=== PATIENT | male | born 1950 | race Caucasian/White ===

== ENCOUNTER 2021-05-11 12:39 | Inpatient (IN) | payer OTHER | END 2021-05-14 16:22 | disposition home or self-care (01) | DRG 381 | LOC: ER 12:39 → ERHOLD 16:46 → ICUW 18:17 → MEDS 05-13 14:22 | PROVIDERS: ADMIT Internal Medicine | PROC: 30233N1 Transfusion of Nonautologous Red Blood Cells into Peripheral Vein, Percutaneous Approach (ICD-10-PCS; 2021-05-11) | PROC: 0W3P8ZZ Control Bleeding in Gastrointestinal Tract, Via Natural or Artificial Opening Endoscopic (ICD-10-PCS; principal; 2021-05-12) | PROC: 0DB68ZX Excision of Stomach, Via Natural or Artificial Opening Endoscopic, Diagnostic (ICD-10-PCS; 2021-05-12) | DX: K22.11 Ulcer of esophagus with bleeding (principal); D62 Acute posthemorrhagic anemia; N17.9 Acute kidney failure, unspecified; K44.9 Diaphragmatic hernia without obstruction or gangrene; K26.4 Chronic or unspecified duodenal ulcer with hemorrhage; J44.9 Chronic obstructive pulmonary disease, unspecified; E78.5 Hyperlipidemia, unspecified; I10 Essential (primary) hypertension; F32.9 Major depressive disorder, single episode, unspecified; N40.1 Benign prostatic hyperplasia with lower urinary tract symptoms; R33.8 Other retention of urine; D72.829 Elevated white blood cell count, unspecified; G89.29 Other chronic pain; F17.210 Nicotine dependence, cigarettes, uncomplicated; I99.8 Other disorder of circulatory system; M54.2 Cervicalgia; M54.9 Dorsalgia, unspecified; B18.2 Chronic viral hepatitis C; Z66 Do not resuscitate; Z86.73 Personal history of transient ischemic attack (TIA), and cerebral infarction without residual deficits; Z88.5 Allergy status to narcotic agent; Z88.8 Allergy status to other drugs, medicaments and biological substances; Z79.899 Other long term (current) drug therapy; Z79.1 Long term (current) use of non-steroidal anti-inflammatories (NSAID); Z79.891 Long term (current) use of opiate analgesic ==

== ENCOUNTER 2023-09-30 13:07 | Emergency (ER) | payer OTHER ==
[~2023-09-30] VITALS: Ht 167.6 cm; Wt 59.0 kg
[~2023-09-30 13:07] MED LIST: ATOR40TA PO; AZO CRANBERRY PO; Acetaminophen650 M1 PO; BUPRENORPHIN-N1 EAC1 SL; CALCIUM CARBON500 M1 PO; CARAFATE1 GM/10 M1 PO; GABA300 PO; Hydroxyzine HCl50 MG PO; K-Phos Origina500 MG PO; LISI20 PO; MELO7.5 PO; Methocarbamol500 MG PO; Mirtazapine45 M1 PO; OMEP20ER PO; ONDA4ODT MM; PANT40 PO; Pepcid40 MG PO; SERT50 PO; TAMS.4ER PO; TRAZ100 PO
[2023-09-30 13:29] LABS: BASOPHILS ABSOLUTE AUTO 0.05 K/mm3 (0.00-0.23); BASOPHILS PERCENT AUTO 1 % (0-2); EOSINOPHILS ABSOLUTE AUTO 0.01 K/mm3 (0.00-0.68); EOSINOPHILS PERCENT AUTO 0 % (0-6); Hematocrit 31.1 % (37.0-53.0); Hemoglobin 10.5 g/dL (13.5-17.5); IMMATURE GRAN ABSOLUTE AUTO 0.02 K/mm3 (0.00-0.10); IMMATURE GRAN PERCENT AUTO 0 % (0-1); LYMPHOCYTES ABSOLUTE AUTO 1.54 K/mm3 (0.84-5.20); LYMPHOCYTES PERCENT AUTO 21 % (21-46); MONOCYTES ABSOLUTE AUTO 0.79 K/mm3 (0.16-1.47); MONOCYTES PERCENT AUTO 11 % (4-13); Mean Corpuscular HGB 30.1 pg (26.0-34.0); Mean Corpuscular HGB Conc 33.8 g/dL (31.5-36.5); Mean Corpuscular Volume 89 fL (80-100); Mean Platelet Volume 8.6 fL (9.1-12.4); NEUTROPHILS ABSOLUTE AUTO 4.93 K/mm3 (1.96-9.15); NEUTROPHILS PERCENT AUTO 67 % (41-73); Platelet Count 341 K/mm3 (150-400); RDW Coefficient Variation 12.9 % (11.7-14.2); RDW Standard Deviation 41.8 fL (35.1-46.3); Red Blood Cell Count 3.49 M/mm3 (4.30-5.90); White Blood Cell Count 7.34 K/mm3 (4.00-11.30)
[2023-09-30 14:25] LABS: Albumin, Blood 4.1 g/dL (3.4-5.0); Albumin/Globulin Ratio 1.4 (0.8-1.8); Bilirubin, Total 0.5 mg/dL (0.1-1.0); Bun/Creatinine Ratio 22.8 (12.0-20.0); Calcium, Blood 8.7 mg/dL (8.5-10.1); Creatinine, Blood 0.57 mg/dL (0.60-1.20); Potassium, Blood 3.7 mmol/L (3.5-5.5); Total Protein, Blood 7.1 g/dL (6.4-8.2)
[2023-09-30 15:27] LABS: Source, Urine Clean Catch
[2023-09-30 15:31] LABS: Appearance, Urine Clear (Clear); Bilirubin, Urine Neg (Neg); Blood, Urine Neg (Neg); Color, Urine Yellow (P-Yellow); Glucose Qualitative, Urine Neg (Neg); Ketones, Urine 3+ (Neg); Leukocyte Esterase, Urine Neg (Neg); Nitrite, Urine Neg (Neg); Protein, Urine Neg (Neg); Specific Gravity, Urine 1.015 (1.003-1.022); Urobilinogen, Urine 1+ (Normal)
[2023-09-30 16:00] VITALS: BP 154/80
== END 2023-09-30 16:30 | disposition home or self-care (01) ==
LOC: ER 13:07
PROVIDERS: Emergency Medicine
DX: K29.70 Gastritis, unspecified, without bleeding (principal); E86.0 Dehydration; R53.1 Weakness; Z88.8 Allergy status to other drugs, medicaments and biological substances; Z79.899 Other long term (current) drug therapy; I10 Essential (primary) hypertension; J44.9 Chronic obstructive pulmonary disease, unspecified; F17.210 Nicotine dependence, cigarettes, uncomplicated
CPT/HCPCS: 80053; 81003; 85025; 99284; J7030

== ENCOUNTER → 2024-12-03 | Day surgery (SDC) | payer OTHER ==
[~2024-12-03] VITALS: Ht 166 cm; Wt 56.0 kg
[2024-12-03] VITALS (8 sets, daily range): BP systolic 97–149; BP diastolic 56–72
[~2024-12-03] MED LIST changes: +ATOR20 PO; +Bupivacaine 0.5% HCl 5 MG/ML 30MLVIAL ONE; +CeFAZolin Sodium 2,000 MG in NS 100 ML IV SCH; +Dexamethasone Sod Phos 10 MG/ML 1ML VIAL ONE; +FentaNYL Citrate 50 MCG/ML 2 ML Injection IV PRN; +FentaNYL Citrate 50 MCG/ML 2 ML Injection ONE; +HYDROcodone 5-APAP 325 TAB PO PRN; +HYDROmorphone HCl/Pf 1MG SYR IV PRN; +Ketorolac Tromethamine 30mg Vial ONE; +Labetalol HCL 5 MG/ML 4ML Injection (Single Dose) IV PRN; +Lactated Ringer's 1,000 ML IV SCH; +Metoclopramide HCl 5MG / ML 2ML Vial IV PRN; +NICO21TP TOP; +Ondansetron HCl 2 MG / ML 2ML Vial ONE; +Phenylephrine HCl 100 MCG/ML-NS 10MLSYR (1MG/10ML) ONE; +Rocuronium Bromide 10 MG/ML 5ML Injection IV ONE; +SENNA LAXATIVE8.6 MG PO; +SUCR1 PO; +Sugammadex Sodium 200 MG/2ML SDV (100 MG/ML) ONE; +VIBRAMYCIN100 MG PO; +ZESTRIL40 M1 PO; +propofoL 20 ML IV ONE
--- NOTE | 2024-12-03 10:33 | NUR ---
History, Chart, Medications and Allergies reviewed before start of procedure. Patient up to Ambulate independently. Gait steady. Pre-Op teaching done. Pt verbalizes understanding. Patient confirms NPO status and agrees with scheduled surgery. Patient reports completing Chlorhexadine shower X2 prior to admission to hospital. Surgical site prepped with 2% Chlorhexidine cloth wipe. Patient States Post-Procedure ride home has been arranged.
--- NOTE | 2024-12-03 13:03 | NUR ---
Patient up to Ambulate independently. Gait steady. Discharge instructions reviewed with patient. Patient verbalizes understanding. Copy given to patient to take home. Discharged via wheelchair to private car for ride home.
== END ==
LOC: ORSCMMR 08:25 → ORD 09:45 → ORSCMMR 09:45
PROVIDERS: Surgery
PROC: 0YU64JZ Supplement Left Inguinal Region with Synthetic Substitute, Percutaneous Endoscopic Approach (ICD-10-PCS; principal; 2024-12-03 09:45)
PROC: 8E0W4CZ Robotic Assisted Procedure of Trunk Region, Percutaneous Endoscopic Approach (ICD-10-PCS; principal; 2024-12-03 09:45)
PROC: 0YU84JZ Supplement Left Femoral Region with Synthetic Substitute, Percutaneous Endoscopic Approach (ICD-10-PCS; principal; 2024-12-03 09:45)
DX: K40.90 Unilateral inguinal hernia, without obstruction or gangrene, not specified as recurrent (principal); K41.90 Unilateral femoral hernia, without obstruction or gangrene, not specified as recurrent; I10 Essential (primary) hypertension; F17.210 Nicotine dependence, cigarettes, uncomplicated; J44.9 Chronic obstructive pulmonary disease, unspecified; K21.9 Gastro-esophageal reflux disease without esophagitis; Z79.899 Other long term (current) drug therapy
CPT/HCPCS: C1781; J0690; J1100; J1885; J2371; J2405; J2704; J3010; J7120

== ENCOUNTER 2024-12-17 15:48 | Emergency (ER) | payer OTHER ==
[~2024-12-17] VITALS: Ht 167.6 cm; Wt 61.2 kg
[~2024-12-17 15:48] MED LIST changes: -Bupivacaine 0.5% HCl 5 MG/ML 30MLVIAL ONE; -CeFAZolin Sodium 2,000 MG in NS 100 ML IV SCH; -Dexamethasone Sod Phos 10 MG/ML 1ML VIAL ONE; -FentaNYL Citrate 50 MCG/ML 2 ML Injection IV PRN; -FentaNYL Citrate 50 MCG/ML 2 ML Injection ONE; -HYDROcodone 5-APAP 325 TAB PO PRN; -HYDROmorphone HCl/Pf 1MG SYR IV PRN; -Ketorolac Tromethamine 30mg Vial ONE; -Labetalol HCL 5 MG/ML 4ML Injection (Single Dose) IV PRN; -Lactated Ringer's 1,000 ML IV SCH; -Metoclopramide HCl 5MG / ML 2ML Vial IV PRN; -Ondansetron HCl 2 MG / ML 2ML Vial ONE; -Phenylephrine HCl 100 MCG/ML-NS 10MLSYR (1MG/10ML) ONE; -Rocuronium Bromide 10 MG/ML 5ML Injection IV ONE; -Sugammadex Sodium 200 MG/2ML SDV (100 MG/ML) ONE; -propofoL 20 ML IV ONE
[2024-12-17 17:13] LABS: BASOPHILS ABSOLUTE AUTO 0.06 K/mm3 (0.00-0.23); BASOPHILS PERCENT AUTO 1 % (0-2); EOSINOPHILS ABSOLUTE AUTO 0.02 K/mm3 (0.00-0.68); EOSINOPHILS PERCENT AUTO 0 % (0-6); Hematocrit 31.9 % (37.0-53.0); Hemoglobin 10.9 g/dL (13.5-17.5); IMMATURE GRAN ABSOLUTE AUTO 0.04 K/mm3 (0.00-0.10); IMMATURE GRAN PERCENT AUTO 0 % (0-1); LYMPHOCYTES ABSOLUTE AUTO 1.52 K/mm3 (0.84-5.20); LYMPHOCYTES PERCENT AUTO 16 % (21-46); MONOCYTES ABSOLUTE AUTO 0.74 K/mm3 (0.16-1.47); MONOCYTES PERCENT AUTO 8 % (4-13); Mean Corpuscular HGB 31.1 pg (26.0-34.0); Mean Corpuscular HGB Conc 34.2 g/dL (31.5-36.5); Mean Corpuscular Volume 91 fL (80-100); Mean Platelet Volume 9.1 fL (9.1-12.4); NEUTROPHILS ABSOLUTE AUTO 7.06 K/mm3 (1.96-9.15); NEUTROPHILS PERCENT AUTO 75 % (41-73); Platelet Count 459 K/mm3 (150-400); RDW Standard Deviation 42.5 fL (35.1-46.3); Red Blood Cell Count 3.51 M/mm3 (4.30-5.90); White Blood Cell Count 9.44 K/mm3 (4.00-11.30)
[2024-12-17 17:29] LABS: Albumin, Blood 4.5 g/dL (3.4-5.0); Albumin/Globulin Ratio 1.4 (0.8-1.8); Bilirubin, Total 0.6 mg/dL (0.1-1.0); Bun/Creatinine Ratio 23.2 (12.0-20.0); Calcium, Blood 9.5 mg/dL (8.5-10.1); Creatinine, Blood 0.65 mg/dL (0.60-1.20); Globulin, Blood 3.3 g/dL (2.2-4.0); Total Protein, Blood 7.8 g/dL (6.4-8.2)
[2024-12-17 17:41] LABS: Source, Urine Clean Catch
[2024-12-17 17:50] LABS: Appearance, Urine Clear (Clear); Bilirubin, Urine Neg (Neg); Blood, Urine Neg (Neg); Color, Urine Yellow (P-Yellow); Glucose Qualitative, Urine Neg (Neg); Ketones, Urine 3+ (Neg); Leukocyte Esterase, Urine Neg (Neg); Nitrite, Urine Neg (Neg); Protein, Urine 1+ (Neg); Urobilinogen, Urine 1+ (Normal)
[2024-12-17] MEDS ORDERED: HyDROXyzine HCl 25 MG Tab PO ONE (18:25)
[2024-12-17] MEDS ORDERED: Atarax10 MG PO (18:27)
[2024-12-17 18:42] VITALS: BP 114/82
== END 2024-12-17 18:45 | disposition home or self-care (01) ==
LOC: ER 15:48
PROVIDERS: Physician Assistant
DX: F41.0 Panic disorder [episodic paroxysmal anxiety] (principal); I10 Essential (primary) hypertension; J44.9 Chronic obstructive pulmonary disease, unspecified; F17.210 Nicotine dependence, cigarettes, uncomplicated; Z79.899 Other long term (current) drug therapy
CPT/HCPCS: 71046; 80053; 85025; 93005; 93010; 99284-25; A9270

== ENCOUNTER 2025-02-10 14:30 | Inpatient (IN) | payer OTHER ==
[~2025-02-10] VITALS: Ht 167.6 cm; Wt 55.6 kg
[~2025-02-10 14:30] MED LIST changes: +Atarax10 MG PO
[2025-02-10 15:13] LABS: BASOPHILS ABSOLUTE AUTO 0.04 K/mm3 (0.00-0.23); BASOPHILS PERCENT AUTO 1 % (0-2); EOSINOPHILS ABSOLUTE AUTO 0.04 K/mm3 (0.00-0.68); EOSINOPHILS PERCENT AUTO 1 % (0-6); Hematocrit 28.8 % (37.0-53.0); Hemoglobin 9.8 g/dL (13.5-17.5); IMMATURE GRAN ABSOLUTE AUTO 0.03 K/mm3 (0.00-0.10); IMMATURE GRAN PERCENT AUTO 0 % (0-1); LYMPHOCYTES PERCENT AUTO 15 % (21-46); MONOCYTES ABSOLUTE AUTO 0.87 K/mm3 (0.16-1.47); MONOCYTES PERCENT AUTO 12 % (4-13); Mean Corpuscular HGB 30.2 pg (26.0-34.0); Mean Corpuscular Volume 89 fL (80-100); Mean Platelet Volume 8.4 fL (9.1-12.4); NEUTROPHILS PERCENT AUTO 73 % (41-73); Platelet Count 342 K/mm3 (150-400); RDW Coefficient Variation 12.6 % (11.7-14.2); RDW Standard Deviation 41.3 fL (35.1-46.3); Red Blood Cell Count 3.24 M/mm3 (4.30-5.90); White Blood Cell Count 7.58 K/mm3 (4.00-11.30)
[2025-02-10 15:26] LABS: International Normalized Ratio 1.05; Prothrombin Time Results 11.2 Sec (9.7-11.5)
[2025-02-10] MEDS ORDERED: ALBU90OI INH (15:37)
[2025-02-10 15:41] LABS: Albumin, Blood 4.2 g/dL (3.4-5.0); Albumin/Globulin Ratio 1.4 (0.8-1.8); Bilirubin, Total 0.4 mg/dL (0.1-1.0); Bun/Creatinine Ratio 21.9 (12.0-20.0); Calcium, Blood 8.9 mg/dL (8.5-10.1); Creatinine, Blood 0.46 mg/dL (0.60-1.20); Potassium, Blood 4.2 mmol/L (3.5-5.5); Total Protein, Blood 7.2 g/dL (6.4-8.2)
[2025-02-10] MEDS ORDERED: Acetaminophen 325 MG TABLET PO PRN (16:30)
[2025-02-10] MEDS ORDERED: Ondansetron HCl 2 MG / ML 2ML Vial IV PRN (16:30)
[2025-02-10] MEDS ORDERED: HyDROXyzine HCl 10 MG Tab PO PRN (16:45)
[2025-02-10] MEDS ORDERED: Nicotine 21 MG PATCH TOP SCH (16:51)
[2025-02-10] MEDS ORDERED: Albuterol HFA200 ACT/6.7 GM INH INH PRN (16:55)
[2025-02-10] MEDS ORDERED: NS 1,000 ML IV SCH (17:00)
[2025-02-10 17:56] VITALS: BP 133/76
[2025-02-10 19:42] VITALS: BP 163/77
[2025-02-10] MEDS ORDERED: Tamsulosin HCl 0.4 MG Cap PO SCH (21:00)
[2025-02-10] MEDS ORDERED: Buprenorphine HCL/Naloxone HCL 8MG-2MG Tab SL SCH (21:00)
[2025-02-10] MEDS ORDERED: Gabapentin 300 MG Cap PO SCH (21:00)
[2025-02-10] MEDS ORDERED: Mirtazapine 15 MG SoluTab PO SCH (21:00)
[2025-02-10] MEDS ORDERED: Ketorolac Tromethamine 15mg Vial IV PRN (23:45)
[2025-02-10] MEDS ORDERED: Cyclobenzaprine HCl 10 MG Tab PO PRN (23:50)
--- NOTE | 2025-02-11 04:29 | NUR ---
SHIFT SUMMARY VSS. PT SLEPT ON AND OFF T/O THE NIGHT. DIFFICULTY W/CHRONIC PAIN MANAGEMENT. OBTAINED ORDER FOR FLEXXERIL AND TORADOL, GOOD RESULTS NOTED. PT HAS BEEN NPO SINCE 0000 FOR SURGERY TODAY, IVF INFUSING PER EMAR. PT ABLE TO STAND AT THE BEDSIDE TO VOID INTO URINAL. OVERALL, NO ACUTE EVENTS NOTED. PLAN FOR OR INTERVENTION TODAY. THE PATIENT IS CURRENTLY RESTING, IN NO DISTRESS, CALL LIGHT IN REACH
[2025-02-11 05:30] LABS: BASOPHILS ABSOLUTE AUTO 0.04 K/mm3 (0.00-0.23); BASOPHILS PERCENT AUTO 1 % (0-2); EOSINOPHILS ABSOLUTE AUTO 0.08 K/mm3 (0.00-0.68); EOSINOPHILS PERCENT AUTO 2 % (0-6); Hemoglobin 9.6 g/dL (13.5-17.5); IMMATURE GRAN ABSOLUTE AUTO 0.01 K/mm3 (0.00-0.10); IMMATURE GRAN PERCENT AUTO 0 % (0-1); LYMPHOCYTES ABSOLUTE AUTO 1.05 K/mm3 (0.84-5.20); LYMPHOCYTES PERCENT AUTO 22 % (21-46); MONOCYTES ABSOLUTE AUTO 0.74 K/mm3 (0.16-1.47); MONOCYTES PERCENT AUTO 16 % (4-13); Mean Corpuscular HGB 30.7 pg (26.0-34.0); Mean Corpuscular HGB Conc 34.3 g/dL (31.5-36.5); Mean Corpuscular Volume 90 fL (80-100); Mean Platelet Volume 8.9 fL (9.1-12.4); NEUTROPHILS ABSOLUTE AUTO 2.81 K/mm3 (1.96-9.15); NEUTROPHILS PERCENT AUTO 60 % (41-73); Platelet Count 344 K/mm3 (150-400); RDW Coefficient Variation 12.7 % (11.7-14.2); RDW Standard Deviation 41.7 fL (35.1-46.3); Red Blood Cell Count 3.13 M/mm3 (4.30-5.90); White Blood Cell Count 4.73 K/mm3 (4.00-11.30)
[2025-02-11 05:53] VITALS: BP 144/79
[2025-02-11] MEDS ORDERED: Pantoprazole Sodium 40 MG Tab PO SCH (06:00)
[2025-02-11 06:09] LABS: Albumin, Blood 3.6 g/dL (3.4-5.0); Albumin/Globulin Ratio 1.3 (0.8-1.8); Bilirubin, Total 1.1 mg/dL (0.1-1.0); Bun/Creatinine Ratio 15.9 (12.0-20.0); Calcium, Blood 8.6 mg/dL (8.5-10.1); Creatinine, Blood 0.63 mg/dL (0.60-1.20); Globulin, Blood 2.7 g/dL (2.2-4.0); Potassium, Blood 3.8 mmol/L (3.5-5.5); Total Protein, Blood 6.3 g/dL (6.4-8.2)
[2025-02-11 07:30] VITALS: BP 144/74
[2025-02-11] MEDS ORDERED: Lisinopril 20 MG Tab PO SCH (09:00)
[2025-02-11] MEDS ORDERED: buprenorphine HCL 2 MG TAB.SUBL SL SCH (09:00)
[2025-02-11] MEDS ORDERED: Atorvastatin 10 MG Tab PO SCH (09:00)
--- NOTE | 2025-02-11 11:53 | NUR ---
NOTE: RECIEVED STAT ORDER FOR EKG. EKG COMPLETED AND IN THE PT'S CHART.
[2025-02-11] MEDS ORDERED: Lactated Ringer's 1,000 ML IV SCH (12:00)
[2025-02-11] MEDS ORDERED: CeFAZolin Sodium 2,000 MG in NS 100 ML IV SCH (12:00)
[2025-02-11] MEDS ORDERED: Ropivacaine 0.5% HCl/Pf 123.125 MG,EPINEPHrine HCL 0.25 MG,Ketorolac Tromethamine 15 MG... INFIL SCH (12:00)
[2025-02-11] MEDS ORDERED: Tranexamic Acid 100 ML IV SCH (12:02)
[2025-02-11 12:48] LABS: Bun/Creatinine Ratio 22.3 (12.0-20.0); Calcium, Blood 8.8 mg/dL (8.5-10.1); Creatinine, Blood 0.54 mg/dL (0.60-1.20); Potassium, Blood 4.3 mmol/L (3.5-5.5)
[2025-02-11] MEDS ORDERED: NS 500 ML IV SCH (14:15)
[2025-02-11 14:41] VITALS: BP 133/73
--- NOTE | 2025-02-11 16:30 | NUR ---
NOTE: NOTIFIED BY OR NURSE THAT THE PT'S PROCEDURE WILL BE POSTPONED UNTIL 02/12. PT NOTIFIED, PROVIDER NOTIFIED. DIET ORDER PUT IN PLACE.
--- NOTE | 2025-02-11 17:19 | NUR ---
SHIFT SUMMARY: PT IS AWAITING SURGERY WHICH HAS BEEN RESCHEDULED FOR TOMORROW. PT NPO STARTING TONIGHT AT MIDNIGHT. AO X 4. PAIN MEDS ADMINISTERED PER EMAR. PT ABLE TO REPOSITION SELF AND CALLS WHEN ASSISTANCE IS NEEDED. CALL LIGHT IS WITHIN REACH AND BED IN THE LOWEST POSITION.
[2025-02-11 19:44] VITALS: BP 129/72
[2025-02-12] VITALS (18 sets, daily range): BP systolic 89–154; BP diastolic 57–78
--- NOTE | 2025-02-12 05:08 | NUR ---
RESEARCH SUPPORT SPECIALIST SUMMARY PT AAOX4 AND PLEASANT. REMAINS ON BEDREST. NPO SINCE MIDNIGHT IN PREP FOR SURGERY LATER TODAY. L HIP PAIN HAS BEEN CONTROLLED WITH A COMBINATION OF FLEXERIL, TORADOL, AND TYLENOL. PT HAS BEEN ABLE TO SLEEP OFF AND ON THROUGH THE NIGHT. VSS, WILL CONTINUE TO MONITOR.
[2025-02-12 05:42] LABS: BASOPHILS ABSOLUTE AUTO 0.04 K/mm3 (0.00-0.23); BASOPHILS PERCENT AUTO 1 % (0-2); EOSINOPHILS ABSOLUTE AUTO 0.05 K/mm3 (0.00-0.68); EOSINOPHILS PERCENT AUTO 1 % (0-6); Hematocrit 31.9 % (37.0-53.0); Hemoglobin 10.8 g/dL (13.5-17.5); IMMATURE GRAN ABSOLUTE AUTO 0.02 K/mm3 (0.00-0.10); IMMATURE GRAN PERCENT AUTO 0 % (0-1); LYMPHOCYTES ABSOLUTE AUTO 1.21 K/mm3 (0.84-5.20); LYMPHOCYTES PERCENT AUTO 21 % (21-46); MONOCYTES PERCENT AUTO 9 % (4-13); Mean Corpuscular HGB 30.3 pg (26.0-34.0); Mean Corpuscular HGB Conc 33.9 g/dL (31.5-36.5); Mean Corpuscular Volume 90 fL (80-100); Mean Platelet Volume 8.6 fL (9.1-12.4); NEUTROPHILS ABSOLUTE AUTO 3.89 K/mm3 (1.96-9.15); NEUTROPHILS PERCENT AUTO 68 % (41-73); Platelet Count 368 K/mm3 (150-400); RDW Coefficient Variation 12.7 % (11.7-14.2); RDW Standard Deviation 42.2 fL (35.1-46.3); Red Blood Cell Count 3.56 M/mm3 (4.30-5.90); White Blood Cell Count 5.71 K/mm3 (4.00-11.30)
[2025-02-12 06:23] LABS: Albumin, Blood 3.6 g/dL (3.4-5.0); Albumin/Globulin Ratio 1.1 (0.8-1.8); Bilirubin, Total 0.7 mg/dL (0.1-1.0); Bun/Creatinine Ratio 24.3 (12.0-20.0); Calcium, Blood 8.7 mg/dL (8.5-10.1); Creatinine, Blood 0.58 mg/dL (0.60-1.20); Globulin, Blood 3.3 g/dL (2.2-4.0); Potassium, Blood 4.1 mmol/L (3.5-5.5); Thyroid Stimulating Hormone 0.691 uIU/mL (0.360-4.800); Total Protein, Blood 6.9 g/dL (6.4-8.2)
--- NOTE | 2025-02-12 08:44 | NUR ---
PAIN ROUNDED ON PATIENT, ONLY COMPLAINT IS THE PAIN, STATES THAT WHAT HE'S BEEN GETTING IS NOT WORKING. CALLED DR. SORENSON WHO STATED WILL PUT IN ORDERS.
[2025-02-12] MEDS ORDERED: OxyCODONE HCL 5 MG TAB PO PRN ×2 (08:53→16:40)
[2025-02-12] MEDS ORDERED: propofoL 100 ML IV ONE (11:07)
[2025-02-12] MEDS ORDERED: Bupivacaine 0.5% Inj 10 ML Vial ONE (11:07)
[2025-02-12] MEDS ORDERED: NS 1,000 ML IV SCH ×2 (11:10→11:50)
[2025-02-12] MEDS ORDERED: Acetaminophen 500 MG Tab PO ONE (11:10)
[2025-02-12] MEDS ORDERED: Lidocaine HCl 1% 5 ML SYR INJ ONE (11:10)
[2025-02-12] MEDS ORDERED: Ondansetron HCl 2 MG / ML 2ML Vial ONE (11:14)
[2025-02-12] MEDS ORDERED: Dexamethasone Sod Phos 10 MG/ML 1ML VIAL ONE (11:14)
[2025-02-12] MEDS ORDERED: HYDROmorphone HCl/Pf 1MG SYR ONE (11:14)
[2025-02-12] MEDS ORDERED: CeFAZolin Sodium 2,000 MG VIAL ONE (11:28)
[2025-02-12] MEDS ORDERED: Ipratropium/Albuterol SulF 2.5-0.5MG/3 ML Amp INH SCH (11:30)
[2025-02-12] MEDS ORDERED: Glycopyrrolate 0.2 MG/ML 5ML VIAL ONE (13:14)
[2025-02-12] MEDS ORDERED: Ketamine HCl 100 MG / ML 5ML Vial ONE (13:15)
--- NOTE | 2025-02-12 13:34 | NUR ---
02/12/25 1334 Víctor,Lo SPINAL BLOCK COMPLETED BY UPON ENTRY TO OR.
[2025-02-12] MEDS ORDERED: Ondansetron HCl 2 MG / ML 2ML Vial IV PRN (14:10)
[2025-02-12] MEDS ORDERED: FentaNYL Citrate 50 MCG/ML 2 ML Injection IV PRN ×3 (14:10→14:15)
[2025-02-12] MEDS ORDERED: Ketorolac Tromethamine 30mg Vial ONE (14:13)
[2025-02-12] MEDS ORDERED: Albuterol 2.5 MG/3 ML VIAL INH PRN (14:15)
--- NOTE | 2025-02-12 15:22 | NUR ---
PT TO ROOM 219 FROM PACU. VSS. AQUACELL DRESSING LEFT HIP. PT SLEEPING ON ARRIVAL. SCDS ON. POSTOP VS STARTED. WILL CONTINUE TO MONITOR.
--- NOTE | 2025-02-12 16:03 | NUR ---
Spiritual Care Attempted. Pt. is somnolent and not responsive. Prayed for Pt. and will remain available to Pt.
--- NOTE | 2025-02-12 18:26 | NUR ---
END OF SHIFT PT RESTING. VSS. RATES PAIN 7-8. FRIEND AT BEDSIDE. POLAR PACK ON. EATING MEAL TRAY. AWAITING VOID
[2025-02-12] MEDS ORDERED: CeFAZolin Sodium 2,000 MG in NS 100 ML IV SCH (21:00)
[2025-02-13 04:20] VITALS: BP 134/71
[2025-02-13 05:13] LABS: BASOPHILS ABSOLUTE AUTO 0.04 K/mm3 (0.00-0.23); BASOPHILS PERCENT AUTO 0 % (0-2); EOSINOPHILS PERCENT AUTO 0 % (0-6); Hematocrit 27.9 % (37.0-53.0); Hemoglobin 9.4 g/dL (13.5-17.5); IMMATURE GRAN ABSOLUTE AUTO 0.06 K/mm3 (0.00-0.10); IMMATURE GRAN PERCENT AUTO 1 % (0-1); LYMPHOCYTES ABSOLUTE AUTO 1.24 K/mm3 (0.84-5.20); LYMPHOCYTES PERCENT AUTO 10 % (21-46); MONOCYTES ABSOLUTE AUTO 1.37 K/mm3 (0.16-1.47); MONOCYTES PERCENT AUTO 11 % (4-13); Mean Corpuscular HGB 30.6 pg (26.0-34.0); Mean Corpuscular HGB Conc 33.7 g/dL (31.5-36.5); Mean Corpuscular Volume 91 fL (80-100); Mean Platelet Volume 8.7 fL (9.1-12.4); NEUTROPHILS ABSOLUTE AUTO 9.98 K/mm3 (1.96-9.15); NEUTROPHILS PERCENT AUTO 79 % (41-73); Platelet Count 344 K/mm3 (150-400); RDW Coefficient Variation 12.7 % (11.7-14.2); RDW Standard Deviation 42.3 fL (35.1-46.3); Red Blood Cell Count 3.07 M/mm3 (4.30-5.90); White Blood Cell Count 12.69 K/mm3 (4.00-11.30)
[2025-02-13 05:33] LABS: Albumin, Blood 3.1 g/dL (3.4-5.0); Albumin/Globulin Ratio 1.1 (0.8-1.8); Bilirubin, Total 0.3 mg/dL (0.1-1.0); Bun/Creatinine Ratio 25.4 (12.0-20.0); Calcium, Blood 8.1 mg/dL (8.5-10.1); Creatinine, Blood 0.59 mg/dL (0.60-1.20); Globulin, Blood 2.8 g/dL (2.2-4.0); Potassium, Blood 4.3 mmol/L (3.5-5.5); Total Protein, Blood 5.9 g/dL (6.4-8.2)
[2025-02-13] MEDS ORDERED: NS 1,000 ML IV SCH ×2 (06:55→16:00)
[2025-02-13 07:09] VITALS: BP 123/70
--- NOTE | 2025-02-13 07:36 | NUR ---
SHIFT SUMMARY NOC. PT POD 1 FOR LEFT LUIS HIP. PT'S AQUACEL C/D/I. PT MEDICATED FOR PAIN WITH MINIMAL REPORTED RELIEF. PT VOIDING URINE. MAKES NEEDS KNOWN, CALL LIGHT IN REACH.
--- NOTE | 2025-02-13 08:09 | NUR ---
Pt. is awake in bed and welcomes my visit. Pt. is pleasant. Facilitated a life review and let the Pt. know that had visited him the previous day, but he was resting. Pt. verbalized about how he has some extended family in the area. Considered some matters of aditi and belief. Prayed for the Pt. Pt. verbalized gratitude for the spiritual care visit and welcomed this wool shearer to return.
[2025-02-13] MEDS ORDERED: OxyCODONE HCL 5 MG TAB PO PRN (11:15)
[2025-02-13 15:11] VITALS: BP 142/61
--- NOTE | 2025-02-13 17:33 | NUR ---
END OF SHIFT PT RESTING. IV INFUSING LEFT ARM. PLAN [facility]. WILL CONTINUE TO MONITOR.
[2025-02-13 19:54] VITALS: BP 146/73
[2025-02-14 04:55] VITALS: BP 143/68
--- NOTE | 2025-02-14 06:19 | NUR ---
BOILER OPERATOR SUMMARY PT IS A/OX4. ABLE TO MAKE NEEDS KNOWN. PT PAIN CONTROLLED WELL T/O THE NIGHT. MEDS PER MAR. LEFT HIP DRESSING IS CDI. NO EXUDATE NOTED TO DRESSING. SENSATION INTACT; PULSES PALPABLE. PT IS PLEASANT AND COOPERATIVE. CALL LIGHT ACCESSIBLE. CARE WILL CONTINUE UNTIL REPORT GIVEN TO ONCOMING NURSE.
[2025-02-14 07:20] VITALS: BP 131/69
[2025-02-14 08:15] LABS: BASOPHILS ABSOLUTE AUTO 0.04 K/mm3 (0.00-0.23); BASOPHILS PERCENT AUTO 1 % (0-2); EOSINOPHILS ABSOLUTE AUTO 0.01 K/mm3 (0.00-0.68); EOSINOPHILS PERCENT AUTO 0 % (0-6); Hematocrit 24.4 % (37.0-53.0); Hemoglobin 8.5 g/dL (13.5-17.5); IMMATURE GRAN ABSOLUTE AUTO 0.02 K/mm3 (0.00-0.10); IMMATURE GRAN PERCENT AUTO 0 % (0-1); LYMPHOCYTES ABSOLUTE AUTO 1.25 K/mm3 (0.84-5.20); LYMPHOCYTES PERCENT AUTO 17 % (21-46); MONOCYTES ABSOLUTE AUTO 1.25 K/mm3 (0.16-1.47); MONOCYTES PERCENT AUTO 17 % (4-13); Mean Corpuscular HGB Conc 34.8 g/dL (31.5-36.5); Mean Corpuscular Volume 89 fL (80-100); NEUTROPHILS ABSOLUTE AUTO 4.96 K/mm3 (1.96-9.15); NEUTROPHILS PERCENT AUTO 66 % (41-73); Platelet Count 315 K/mm3 (150-400); RDW Coefficient Variation 12.9 % (11.7-14.2); RDW Standard Deviation 41.8 fL (35.1-46.3); Red Blood Cell Count 2.74 M/mm3 (4.30-5.90); White Blood Cell Count 7.53 K/mm3 (4.00-11.30)
[2025-02-14] MEDS ORDERED: Cyclobenzaprine5 MG PO (08:32)
[2025-02-14] MEDS ORDERED: [UNRECOGNIZED DRUG - CODE] PO (08:33)
[2025-02-14 08:41] LABS: Bun/Creatinine Ratio 13.4 (12.0-20.0); Calcium, Blood 7.8 mg/dL (8.5-10.1); Creatinine, Blood 0.52 mg/dL (0.60-1.20); Potassium, Blood 3.9 mmol/L (3.5-5.5)
[2025-02-14 09:17] LABS: SARS-Cov-2 (COVID-19) PCR, MMC NEGATIVE (NEGATIVE)
--- NOTE | 2025-02-14 11:33 | NUR ---
REPORT PASSED TO [facility] AT THIS TIME
--- NOTE | 2025-02-14 12:23 | NUR ---
PT LEFT FOR [facility] AT THIS TIME. ALL BELONGINGS WITH PATIENT. NO IV PRESENT WHILE LEAVING.
--- NOTE | 2025-02-14 13:29 | NUR ---
TRANSPORT HERE FOR PT AT ABOUT 12:10. TRANSPORTER GIVEN DC PACKET AND PT LEFT UNIT AT ABOUT 12:15
== END 2025-02-14 12:26 | DRG 522 ==
LOC: ER 14:30 → ERHOLD 14:31 → SURS 14:31
PROVIDERS: Family Medicine; Hospitalist; Orthopaedic Surgery Sports Medicine; Physician Assistant; ADMIT Internal Medicine
PROC: 0SRS01Z Replacement of Left Hip Joint, Femoral Surface with Metal Synthetic Substitute, Open Approach (ICD-10-PCS; principal; 2025-02-12 12:30)
DX: S72.002A Fracture of unspecified part of neck of left femur, initial encounter for closed fracture (principal); E87.1 Hypo-osmolality and hyponatremia; Z66 Do not resuscitate; I10 Essential (primary) hypertension; W18.30XA Fall on same level, unspecified, initial encounter; K21.9 Gastro-esophageal reflux disease without esophagitis; J44.9 Chronic obstructive pulmonary disease, unspecified; E78.5 Hyperlipidemia, unspecified; F41.9 Anxiety disorder, unspecified; F15.10 Other stimulant abuse, uncomplicated; F17.210 Nicotine dependence, cigarettes, uncomplicated; G89.4 Chronic pain syndrome; Z79.899 Other long term (current) drug therapy
CPT/HCPCS: 36415; 70450; 73502; 80048; 80053; 82533; 84295; 84443; 85025; 85610; 93005; 93010; 94760; 96374; 96376; 97110; 97116; 97162; 97165; 97530; 97535; 99285-25; A9270; C1776; G0378; J0171; J0690; J0735; J1100; J1171; J1885; J2405; J2704; J2795; J7030; J7040; U0002